=== PATIENT | male | born 1955 | race Caucasian/White ===

== ENCOUNTER → 2023-11-16 07:46 | Outpatient (REF) | payer MEDICARE, OTHER, SELFPAY ==
[2023-11-16 10:10] LABS: PSA, Total - Screen 1.33 ng/ml (0.0-4.0)
== END ==
LOC: REG 07:46
PROVIDERS: ATTENDING PHYSICIAN Urology; FAMILY PHYSICIAN Family Medicine
DX: Z12.5 Encounter for screening for malignant neoplasm of prostate (principal)
CPT/HCPCS: 36415; G0103

== ENCOUNTER → 2024-03-19 12:43 | Outpatient (REF) | payer MEDICARE, OTHER, SELFPAY ==
[2024-03-19 15:47] LABS: Blood Urea Nitrogen 21 mg/dl (9-20); Calcium 9.4 mg/dl (8.4-10.2); Carbon Dioxide 27 mmol/L (22-30); Chloride 100 mmol/L (98-107); Glucose 81 mg/dl (70-99); Potassium 4.4 mmol/L (3.5-5.1); Sodium 140 mmol/L (135-145); eGFR > 60.00
== END ==
LOC: REG 12:43
PROVIDERS: ATTENDING PHYSICIAN Family Medicine
DX: I10 Essential (primary) hypertension (principal)
CPT/HCPCS: 36415; 80048

== ENCOUNTER → 2024-03-27 08:00 | Outpatient (REF) | payer MEDICARE, OTHER, SELFPAY | LOC: HWRAD 08:00 | PROVIDERS: ATTENDING PHYSICIAN Family Medicine | DX: R06.02 Shortness of breath (principal) | CPT/HCPCS: 71260; Q9967 ==

== ENCOUNTER → 2025-04-10 08:40 | Outpatient (REF) | payer MEDICARE, OTHER, SELFPAY | LOC: REG 08:40 | PROVIDERS: ATTENDING PHYSICIAN Family Medicine | DX: N02.0 Recurrent and persistent hematuria with minor glomerular abnormality (principal) | CPT/HCPCS: 88112 ==